=== PATIENT | male | born 1980 | race Caucasian/White ===

== ENCOUNTER 2019-08-25 11:11 | Emergency (ER) | payer OTHER ==
[~2019-08-25] VITALS: Ht 182.9 cm; Wt 90.7 kg
[2019-08-25] MEDS ORDERED: ACYCLOVIR 800800 MG PO (12:49)
[2019-08-25] MEDS ORDERED: PREDNISONE 10 M10 M1 PO (12:49)
[2019-08-25 12:57] VITALS: BP 126/68
== END 2019-08-25 12:59 | disposition home or self-care (01) ==
LOC: M.ERS 11:11
DX: B02.30 Zoster ocular disease, unspecified (principal)